=== PATIENT | female | born 1950 | race African-American/Black ===

== ENCOUNTER 2023-10-06 10:04 | Emergency (ER) | payer MEDICARE ==
[2023-10-06 10:37] LABS: #Basophils 0.04 10x3/uL (0.0-0.2); #Eosinphils 0.01 10x3/uL (0.0-0.5); #Monocytes 0.68 10x3/uL (0.0-1.1); #Neutrophils 11.74 10x3/uL (1.5-8.4); %Basophils 0.3 % (0.0-2.0); %Eosinophils 0.1 % (0.0-6.0); %Lymphocytes 9.6 % (18.0-47.0); %Monocytes 4.9 % (0.0-10.0); %Neutrophils 84.3 % (40.0-75.0); Hematocrit 33.1 % (34.9-44.5); Mean Corpuscular HGB CONC 33.2 g/dL (32.0-36.0); Mean Corpuscular Hemoglobin 28.9 pg (27.0-33.0); Mean Corpuscular Volume 87.1 fL (81.6-98.3); Mean Platelet Volume 8.5 fL (7.4-10.4); Platelet Count 583 10x3/uL (150-450); RBC Distribution Width 14.5 % (11.5-14.5); White Blood Cell (WBC) Count 13.9 10x3/uL (3.5-10.5)
[2023-10-06 10:52] LABS: ALT (SGPT) Less than 7 U/L (8-55); AST (SGOT) 19 U/L (5-34); Alkaline Phosphatase 71 U/L (40-110); Anion Gap 19 mmol/L (10-20); BUN (Urea Nitrogen) 87 mg/dL (9.8-20.1); Bilirubin, Total 0.5 mg/dL (0.2-1.2); CK (CPK) 701 U/L (29-168); Calc. Creatinine Clearance 0 mL/min (70-130); Calcium 9.5 mg/dL (7.8-10.44); Carbon Dioxide 17 mmol/L (23-31); Chloride 105 mmol/L (98-107); Estimated GFR 9; Globulin 4.8 g/dL (2.4-3.5); Glucose 142 mg/dL (80-115); Protein, Total 7.8 g/dL (5.8-8.1); Sodium 133 mmol/L (136-145)
[2023-10-06 10:55] LABS: Troponin I Less than 0.010 ng/mL (< 0.028)
[2023-10-06 11:10] LABS: Critical Call Chemistry ERS.CH3 @1110
[2023-10-06] MEDS ORDERED: Insulin Regular 300 UNITS/3 ML VIAL ONE (11:24)
[2023-10-06] MEDS ORDERED: Calcium Chloride 1 GM/10 ML Abboject SYRINGE ONE (11:24)
== END 2023-10-06 13:38 | disposition admitted as inpatient to this hospital (09) ==
LOC: CSHERS 10:04
DX: N17.9 Acute kidney failure, unspecified (principal); E87.5 Hyperkalemia; M62.82 Rhabdomyolysis; I10 Essential (primary) hypertension; E11.9 Type 2 diabetes mellitus without complications
CPT/HCPCS: 36415; 36416; 70450; 72125; 80053; 82550; 84484; 85025; 93005; 96374; 96375; J1815